=== PATIENT | female | born 1965 | race Caucasian/White ===

== ENCOUNTER 2022-07-18 16:53 | Emergency (ER) | payer OTHER ==
[~2022-07-18 16:53] MED LIST: FAMCICLOVIR500 MG PO; PREDNISONE 20MG20 MG PO
[2022-07-18 17:23] LABS: BASOPHIL 0.3 % (0-2); HCT 43.2 % (37.0-47.0); HGB 14.9 g/dl (12.5-16.0); LYMPHOCYTE 29.4 % (15-48); MCH 33.1 pg (25.0-31.0); MCHC 34.5 g/dL (32.0-36.0); MONOCYTE 10.1 % (0-12); NEUTROPHIL 58.9 % (41-80); NRBC 0; PLT 249 K/uL (150-400); RDW 11.9 % (11.5-14.0); WBC 7.8 K/uL (4.0-10.5)
[2022-07-18 17:28] LABS: INR 0.93 (0.9-1.2); PROTHROMBIN TIME 12.2 SECONDS (11.9-13.9); PTT 25.7 SECONDS (24.9-34.6)
[2022-07-18 17:51] LABS: ALBUMIN 3.4 g/dL (3.4-5.0); BILIRUBIN - TOTAL 0.4 mg/dL (0.2-1.0); BUN/CREAT RATIO (CALC) 11.9 RATIO; CREATININE 0.67 mg/dL (0.51-0.95); GLOBULIN (CALCULATION) 4.1 g/dL; POTASSIUM 4.3 mmol/L (3.5-5.1); TOTAL PROTEIN 7.5 g/dL (6.4-8.2)
[2022-07-18 18:09] LABS: CORONAVIRUS 2019 SARS-COV-2 NEGATIVE (NEGATIVE); INFLUENZA A NAA NEGATIVE (NEGATIVE)
[2022-07-18 18:24] LABS: FT4 (FREE T4) 1.6 ng/dL (0.76-1.46)
== END 2022-07-18 19:43 | disposition other institution (70) ==
LOC: FER 16:53
PROVIDERS: Internal Medicine
DX: I20.0 Unstable angina (principal); R94.31 Abnormal electrocardiogram [ECG] [EKG]; Z88.8 Allergy status to other drugs, medicaments and biological substances; Z20.822 Contact with and (suspected) exposure to COVID-19
CPT/HCPCS: 36415; 71045; 80053; 83735; 83880; 84439; 84443; 84484; 85025; 85379; 85610; 85730; 93005; J1644; U0002